=== PATIENT | male | born 1975 | race Hispanic/Latino ===

== ENCOUNTER 2019-03-02 18:58 | Emergency (ER) | payer SELFPAY ==
[~2019-03-02] VITALS: Ht 167.6 cm; Wt 73.0 kg
[~2019-03-02 18:58] MED LIST: BAYER ASPIRIN325 MG PO; CORTISPORIN OTI10 M1 OT; IBUPROFEN600 MG PO; NO HOME MEDS; [UNRECOGNIZED DRUG - OTHER] XX
[2019-03-02] MEDS ORDERED: GENTAK0.32 OS ×2 (19:47→19:56)
[2019-03-02 19:55] VITALS: BP 144/91
== END 2019-03-02 19:55 | disposition home or self-care (01) | DRG 125 ==
LOC: ED 18:58
DX: T15.12XA Foreign body in conjunctival sac, left eye, initial encounter (principal); X58.XXXA Exposure to other specified factors, initial encounter; Y92.89 Other specified places as the place of occurrence of the external cause; Y99.0 Civilian activity done for income or pay

== ENCOUNTER 2019-06-19 | Emergency (ER) | payer SELFPAY ==
[~2019-06-19] MED LIST changes: +GENTAK0.32 OS
[2019-06-19 05:41] LABS: HEMATOCRIT 50.5 % (39.0-50.0); HEMOGLOBIN 17.1 g/dl (14.0-18.0); IMMATURE GRANULOCYTES 0.4 % (0.0-5.0); MEAN CELL VOLUME 89.2 fL CALC (80.0-100.0); MEAN CORPUSCULAR HGB 30.2 pG CALC (26.0-32.0); MEAN CORPUSCULAR HGB CONC 33.9 g/L CALC (32.0-36.0); NEUT# 12.42 thou/uL (1.82-7.42); RED BLOOD COUNT 5.66 mill/uL (4.70-6.10); RED CELL DISTRI WIDTH 12.9 % (11.5-15.5)
[2019-06-19 05:56] LABS: ALKALINE PHOSPHATASE 82 u/l (38-126); AMYLASE 102 u/l (30-110); ANION GAP 15 (6-22 (CALC)); BILIRUBIN, TOTAL 0.8 mg/dL (0.0-1.4); BUN 27 mg/dL (9-20); BUN/CREATININE RATIO 22 (12-20 (CALC)); CARBON DIOXIDE 29 mmol/l (22-30); CHLORIDE 99 mmol/l (95-108); CREATININE 1.2 mg/dL (0.7-1.3); ETHYL ALCOHOL 0 mg/dl (0-30); GFR > 60 ML/MIN (>=60 (CALC)); GFR FOR AFR.AMER. > 60 ML/MIN (>=60 (CALC)); LIPASE 110 u/l (23-300); POTASSIUM 3.7 mmol/l (3.5-5.1); SODIUM 140 mmol/l (137-146)
[2019-06-19 06:00] LABS: ALBUMIN 5.2 g/dL (3.2-5.0); SGOT/AST 40 u/l (17-59); TOTAL PROTEIN 9.4 g/dL (6.3-8.2)
[2019-06-19 06:49] LABS: URINE BILIRUBIN - DIPSTICK NEGATIVE (NEGATIVE); URINE BLOOD DIPSTICK NEGATIVE (NEGATIVE); URINE COLOR YELLOW; URINE GLUCOSE - DIPSTICK NEGATIVE (NEGATIVE); URINE KETONE NEGATIVE (NEGATIVE); URINE LEUK ESTERASE NEGATIVE (NEGATIVE); URINE NITRITE - DIPSTICK NEGATIVE (Negative); URINE PROTEIN - DIPSTICK TRACE mg/dL (NEG-TRACE); URINE SPECIFIC GRAVITY 1.025; URINE UROBILINOGEN - DIPSTICK 0.2 E.U./dL (0.2)
[2019-06-19 06:52] LABS: BARBITURATES NEGATIVE (NEGATIVE); COCAINE NEGATIVE (NEGATIVE); METHADONE NEGATIVE (NEGATIVE); OXCYCODONE NEGATIVE (NEGATIVE); TETRAHYDROCANNABIONOL NEGATIVE (NEGATIVE); TRICYLIC ANTIDEPRESSANTS NEGATIVE (NEGATIVE)
== END 2019-06-19 07:15 | disposition home or self-care (01) | DRG 312 ==
DX: R55 Syncope and collapse (principal); R11.2 Nausea with vomiting, unspecified; S00.31XA Abrasion of nose, initial encounter; W18.39XA Other fall on same level, initial encounter

== ENCOUNTER 2020-02-21 08:30 | Emergency (ER) | payer SELFPAY ==
[~2020-02-21] VITALS: Ht 167.6 cm; Wt 74.0 kg
[2020-02-21 09:09] LABS: HEMATOCRIT 44.7 % (39.0-50.0); IMMATURE GRANULOCYTES 0.5 % (0.0-5.0); MEAN CELL VOLUME 89.8 fL CALC (80.0-100.0); MEAN CORPUSCULAR HGB 29.9 pG CALC (26.0-32.0); MEAN CORPUSCULAR HGB CONC 33.3 g/dL CAL (32.0-36.0); NEUT# 3.51 thou/uL (1.82-7.42); RED BLOOD COUNT 4.98 mill/uL (4.70-6.10); RED CELL DISTRI WIDTH 13.2 % (11.5-15.5)
[2020-02-21 09:17] LABS: HEMOGLOBIN 14.9 g/dl (14.0-18.0)
[2020-02-21 09:42] LABS: ALBUMIN 4.6 g/dL (3.2-5.0); ALKALINE PHOSPHATASE 74 u/l (38-126); ANION GAP 12 (6-22 (CALC)); BILIRUBIN, TOTAL 0.6 mg/dL (0.0-1.4); BUN 16 mg/dL (9-20); BUN/CREATININE RATIO 16 (12-20 (CALC)); CARBON DIOXIDE 26 mmol/l (22-30); CHLORIDE 102 mmol/l (95-108); GFR > 60 ML/MIN (>=60 (CALC)); GFR FOR AFR.AMER. > 60 ML/MIN (>=60 (CALC)); POTASSIUM 3.9 mmol/l (3.5-5.1); SGOT/AST 27 u/l (17-59); SODIUM 137 mmol/l (137-146)
[2020-02-21 09:45] LABS: TOTAL PROTEIN 7.2 g/dL (6.3-8.2)
[2020-02-21 10:04] LABS: URINE BILIRUBIN - DIPSTICK NEGATIVE (NEGATIVE); URINE BLOOD DIPSTICK NEGATIVE (NEGATIVE); URINE COLOR YELLOW; URINE GLUCOSE - DIPSTICK NEGATIVE (NEGATIVE); URINE KETONE NEGATIVE (NEGATIVE); URINE LEUK ESTERASE NEGATIVE (NEGATIVE); URINE NITRITE - DIPSTICK NEGATIVE (Negative); URINE PROTEIN - DIPSTICK TRACE mg/dL (NEG-TRACE); URINE SPECIFIC GRAVITY >=1.030; URINE UROBILINOGEN - DIPSTICK 0.2 E.U./dL (0.2)
[2020-02-21] MEDS ORDERED: ZOFRAN4 MG/TAB PO (10:14)
[2020-02-21] MEDS ORDERED: MECLIZINE25 MG PO (10:14)
[2020-02-21 10:39] VITALS: BP 119/80
== END 2020-02-21 10:39 | disposition home or self-care (01) | DRG 149 ==
LOC: ED 08:30
PROVIDERS: Student in an Organized Health Care Education/Training Program
DX: H81.10 Benign paroxysmal vertigo, unspecified ear (principal)

== ENCOUNTER 2021-01-24 10:49 | Emergency (ER) | payer SELFPAY ==
[~2021-01-24 10:49] MED LIST changes: +MECLIZINE25 MG PO; +ZOFRAN4 MG/TAB PO
[2021-01-24 12:02] LABS: HEMOGLOBIN 15.3 g/dl (14.0-18.0); IMMATURE GRANULOCYTES 0.3 % (0.0-5.0); MEAN CELL VOLUME 90.7 fL CALC (80.0-100.0); MEAN CORPUSCULAR HGB 30.2 pG CALC (26.0-32.0); MEAN CORPUSCULAR HGB CONC 33.3 g/dL CAL (32.0-36.0); NEUT# 4.54 thou/uL (1.82-7.42); RED BLOOD COUNT 5.07 mill/uL (4.70-6.10); RED CELL DISTRI WIDTH 12.9 % (11.5-15.5)
[2021-01-24 12:20] LABS: ALBUMIN 4.5 g/dL (3.2-5.0); ALKALINE PHOSPHATASE 76 u/l (38-126); AMYLASE 75 u/l (30-110); ANION GAP 15 (6-22 (CALC)); BILIRUBIN, TOTAL 0.8 mg/dL (0.0-1.4); BUN 16 mg/dL (9-20); BUN/CREATININE RATIO 13 (12-20 (CALC)); CARBON DIOXIDE 24 mmol/l (22-30); CHLORIDE 101 mmol/l (95-108); CREATININE 1.2 mg/dL (0.7-1.3); GFR > 60 ML/MIN (>=60 (CALC)); GFR FOR AFR.AMER. > 60 ML/MIN (>=60 (CALC)); LIPASE 80 u/l (23-300); POTASSIUM 3.2 mmol/l (3.5-5.1); SGOT/AST 27 u/l (17-59); SODIUM 136 mmol/l (137-146); TOTAL PROTEIN 7.6 g/dL (6.3-8.2)
[2021-01-24 12:57] LABS: URINE BILIRUBIN - DIPSTICK NEGATIVE (NEGATIVE); URINE BLOOD DIPSTICK LARGE (NEGATIVE); URINE COLOR YELLOW; URINE GLUCOSE - DIPSTICK NEGATIVE (NEGATIVE); URINE KETONE TRACE mg/dL (NEGATIVE); URINE LEUK ESTERASE NEGATIVE (NEGATIVE); URINE PH 5.5 (4.5-8.0); URINE PROTEIN - DIPSTICK TRACE mg/dL (NEG-TRACE); URINE SPECIFIC GRAVITY >=1.030; URINE UROBILINOGEN - DIPSTICK 0.2 E.U./dL (0.2)
[2021-01-24 13:02] LABS: URINE NITRITE - DIPSTICK NEGATIVE (Negative)
[2021-01-24 13:14] LABS: URINE WBC 0-2 WBC/hpf (0-5)
[2021-01-24] MEDS ORDERED: ULTRAM50 M1 PO (13:27)
[2021-01-24] MEDS ORDERED: TAMSULOSIN0.4 MG PO (13:27)
[2021-01-24 13:56] VITALS: BP 142/84
== END 2021-01-24 13:56 | disposition home or self-care (01) | DRG 694 ==
LOC: ED 10:49
PROVIDERS: Emergency Medicine
DX: N20.0 Calculus of kidney (principal)
CPT/HCPCS: Q9967

== ENCOUNTER 2024-01-09 09:43 | Day surgery (SDC) | payer OTHER ==
[~2024-01-09] VITALS: Ht 175.3 cm; Wt 74.8 kg
[~2024-01-09 09:43] MED LIST changes: +TAMSULOSIN0.4 MG PO; +ULTRAM50 M1 PO; +[UNRECOGNIZED DRUG - OTHER] RE
[2024-01-09] MEDS ORDERED: FAMOTIDINE 10MG/ML 2ML SDV IV ONE (10:04)
[2024-01-09] MEDS ORDERED: LACTATED RINGER'S 1,000 ML IV ONE (10:05)
[2024-01-09 12:12] VITALS: BP 123/84
[2024-01-09] MEDS ORDERED: PROPOFOL 200 MG/20 ML VIAL IV ONE (15:11)
[2024-01-09] MEDS ORDERED: LIDOCAINE HCL 2% 2ML SDV IV ONE (15:11)
[2024-01-09] MEDS ORDERED: GLYCOPYRROLATE 0.2 MG/ML IV ONE (15:11)
== END 2024-01-09 12:21 | disposition home or self-care (01) | DRG 395 ==
LOC: ENDO 09:43
PROVIDERS: ATTEND Internal Medicine Gastroenterology
PROC: 0DJD8ZZ Inspection of Lower Intestinal Tract, Via Natural or Artificial Opening Endoscopic (ICD-10-PCS; principal; 2024-01-09)
DX: K64.8 Other hemorrhoids (principal)